=== PATIENT | male | born 1940 | race Caucasian/White ===

== ENCOUNTER → 2017-06-20 | Outpatient (CLI) | payer MEDICARE, BC ==
[~2017-06-20] MED LIST: ACETAMINOPHEN650 M5 PO; AMBIEN 5 MG TABL5 M1 PO; AMLODIPINE BESY10 MG PO; AVODART0.5 MG PO; CARVEDILOL12.5 MG PO; CARVEDILOL25 MG PO; CATAPRES-TTS 10.1 MG PO; CLOPIDOGREL75 MG PO; COUMADIN7.5 MG; ENDOCET 5-3251 EACH; FINASTERIDE5 MG; HUMALOG PE100 UNIT/1 SQ; HYDROCHLOROTHIA25 M1 PO; HYDROCODONE-AP1 EAC6; LEVEMIR SQ; LEXAPRO 10 MG T10 M2 PO; LIDODERM 5%1 PATCH; LISINOPRIL10 MG PO; MEDROLDOSEPACK PO; NOHOMEMEDICATIONS; NORVASC 5 MG TAB5 MG PO; PLAVIX 75 MG TA75 M1 PO; PLAVIX 75 MG TA75 MG; SIMVASTATIN20 MG PO; TAMSULOSIN HCL0.4 M1 PO; TAMSULOSIN HCL0.4 MG; ZOCOR 20 MG TAB20 M1; ZOLOFT 50 MG TA50 MG PO
== END ==
LOC: M.WC 01:41
DX: E11.622 Type 2 diabetes mellitus with other skin ulcer (principal); L98.411 Non-pressure chronic ulcer of buttock limited to breakdown of skin; L89.313 Pressure ulcer of right buttock, stage 3; L89.323 Pressure ulcer of left buttock, stage 3; R54 Age-related physical debility; I25.10 Atherosclerotic heart disease of native coronary artery without angina pectoris; I10 Essential (primary) hypertension; F33.1 Major depressive disorder, recurrent, moderate; E78.2 Mixed hyperlipidemia; Z86.711 Personal history of pulmonary embolism; M19.90 Unspecified osteoarthritis, unspecified site; F41.9 Anxiety disorder, unspecified; F32.9 Major depressive disorder, single episode, unspecified; Z86.73 Personal history of transient ischemic attack (TIA), and cerebral infarction without residual deficits; Z87.891 Personal history of nicotine dependence

== ENCOUNTER → 2017-06-27 | Outpatient (CLI) | payer MEDICARE, BC | LOC: M.WC 02:22 | DX: E11.622 Type 2 diabetes mellitus with other skin ulcer (principal); L98.411 Non-pressure chronic ulcer of buttock limited to breakdown of skin; L89.323 Pressure ulcer of left buttock, stage 3; L89.313 Pressure ulcer of right buttock, stage 3; E11.65 Type 2 diabetes mellitus with hyperglycemia; I10 Essential (primary) hypertension; I25.10 Atherosclerotic heart disease of native coronary artery without angina pectoris; E78.2 Mixed hyperlipidemia; M19.90 Unspecified osteoarthritis, unspecified site; F33.1 Major depressive disorder, recurrent, moderate; F41.9 Anxiety disorder, unspecified; E66.9 Obesity, unspecified; Z68.35 Body mass index [BMI] 35.0-35.9, adult; Z87.891 Personal history of nicotine dependence; Z85.07 Personal history of malignant neoplasm of pancreas; Z86.711 Personal history of pulmonary embolism; Z86.73 Personal history of transient ischemic attack (TIA), and cerebral infarction without residual deficits; Z98.42 Cataract extraction status, left eye; Z98.41 Cataract extraction status, right eye ==

== ENCOUNTER → 2017-07-04 | Outpatient (CLI) | payer MEDICARE, BC | LOC: M.WC 01:20 | DX: E11.622 Type 2 diabetes mellitus with other skin ulcer (principal); L98.411 Non-pressure chronic ulcer of buttock limited to breakdown of skin; L89.323 Pressure ulcer of left buttock, stage 3; L89.313 Pressure ulcer of right buttock, stage 3; E11.65 Type 2 diabetes mellitus with hyperglycemia; I10 Essential (primary) hypertension; I25.10 Atherosclerotic heart disease of native coronary artery without angina pectoris; E78.2 Mixed hyperlipidemia; M19.90 Unspecified osteoarthritis, unspecified site; F41.9 Anxiety disorder, unspecified; F33.1 Major depressive disorder, recurrent, moderate; Z86.73 Personal history of transient ischemic attack (TIA), and cerebral infarction without residual deficits; Z86.711 Personal history of pulmonary embolism; Z85.07 Personal history of malignant neoplasm of pancreas; Z98.42 Cataract extraction status, left eye; Z98.41 Cataract extraction status, right eye; Z87.891 Personal history of nicotine dependence ==

== ENCOUNTER → 2017-07-11 | Outpatient (CLI) | payer MEDICARE, BC | LOC: M.WC 01:37 | DX: E11.622 Type 2 diabetes mellitus with other skin ulcer (principal); L98.411 Non-pressure chronic ulcer of buttock limited to breakdown of skin; L89.312 Pressure ulcer of right buttock, stage 2; L89.322 Pressure ulcer of left buttock, stage 2; R54 Age-related physical debility; I25.10 Atherosclerotic heart disease of native coronary artery without angina pectoris; I10 Essential (primary) hypertension; E78.2 Mixed hyperlipidemia; F33.1 Major depressive disorder, recurrent, moderate; E66.9 Obesity, unspecified; Z68.35 Body mass index [BMI] 35.0-35.9, adult; M19.90 Unspecified osteoarthritis, unspecified site; F32.9 Major depressive disorder, single episode, unspecified; F41.9 Anxiety disorder, unspecified; Z86.711 Personal history of pulmonary embolism; Z86.73 Personal history of transient ischemic attack (TIA), and cerebral infarction without residual deficits; Z85.07 Personal history of malignant neoplasm of pancreas; Z87.891 Personal history of nicotine dependence ==

== ENCOUNTER 2018-08-19 16:28 | Inpatient (IN) | payer MEDICARE, BC ==
[~2018-08-19] VITALS: Ht 190.5 cm; Wt 129.0 kg
[~2018-08-19 16:28] MED LIST changes: -AMLODIPINE BESY10 MG PO; +COREG6.25 MG PO; -LISINOPRIL10 MG PO; -PLAVIX 75 MG TA75 M1 PO; -TAMSULOSIN HCL0.4 MG; +TAMSULOSIN HCL0.4 MG PO
[2018-08-19] MEDS ORDERED: PROAIR RESPICL90 MCG INH (17:01)
[2018-08-19] MEDS ORDERED: LEXAPRO20 MG PO (17:02)
[2018-08-19] MEDS ORDERED: HYDROCHLOROTHIA25 M2 PO (17:02)
[2018-08-19] MEDS ORDERED: FLOMAX0.4 MG PO (17:51)
[2018-08-19] MEDS ORDERED: XARELTO20 MG PO (17:51)
[2018-08-19] MEDS ORDERED: TRIAMCINOLONE 080 G3 TOP (17:57)
[2018-08-19 20:15] VITALS: BP 128/71
[2018-08-20 04:48] LABS: HEMATOCRIT 23.7 % (42.0-52.0); HEMOGLOBIN 8.1 gm/dL (14.0-18.0); MCH 32.7 pg (26.0-34.0); MCHC 34.2 g/dL (28.0-37.0); MCV 95.4 fL (80.0-100.0); MPV 8.3 fl. (7.2-11.1); RBC 2.48 mil/uL (4.50-6.00); RDW-CV 15.5 % (10.5-14.5)
[2018-08-20 05:07] LABS: CALCIUM 8.6 mg/dL (8.5-10.1); CREATININE 1.2 mg/dL (0.6-1.3)
[2018-08-20 08:30] VITALS: BP 110/79
[2018-08-20 20:17] VITALS: BP 127/76
[2018-08-21 08:18] VITALS: BP 117/67
[2018-08-21 20:14] VITALS: BP 124/76
[2018-08-22 07:00] VITALS: BP 126/88
[2018-08-22 20:18] VITALS: BP 119/72
[2018-08-23 08:27] VITALS: BP 122/69
[2018-08-23 17:16] VITALS: BP 156/93
[2018-08-23 20:00] VITALS: BP 118/73
[2018-08-24 03:08] LABS: GLYCOHEMOGLOBIN (HGB A1C) 5.7 % (4.8-5.6)
[2018-08-24 09:01] VITALS: BP 119/79
[2018-08-24 16:58] VITALS: BP 124/86
[2018-08-24 19:54] VITALS: BP 122/76
[2018-08-25 07:55] VITALS: BP 122/86
[2018-08-25 22:23] VITALS: BP 134/77
[2018-08-26 04:29] LABS: CALCIUM 9.2 mg/dL (8.5-10.1); CREATININE 1.2 mg/dL (0.6-1.3); POTASSIUM 3.2 mmol/L (3.5-5.1)
[2018-08-26 05:18] LABS: HEMATOCRIT 42.7 % (42.0-52.0); HEMOGLOBIN 13.7 gm/dL (14.0-18.0); MCH 26.9 pg (26.0-34.0); MCHC 32.1 g/dL (28.0-37.0); MCV 83.8 fL (80.0-100.0); MPV 9.8 fl. (7.2-11.1); NUCLEATED RBCS 0 /100WBC; RBC 5.09 mil/uL (4.50-6.00); RDW-CV 17.5 % (10.5-14.5); WBC 10.3 thou/uL (4.0-11.0)
[2018-08-26 05:22] LABS: PLATELET COUNT* 989 thou/uL (150-400)
[2018-08-26 06:35] LABS: ABSOLUTE BASOPHILS 0.2 thou/uL (0.0-0.2); ABSOLUTE EOSINOPHILS 0.6 thou/uL (0.0-0.7); ABSOLUTE LYMPHOCYTES 4.3 thou/uL (0.8-5.3); ABSOLUTE MONOCYTES 1.3 thou/uL (0.0-1.2); ABSOLUTE NEUTROPHILS 3.8 thou/uL (1.6-8.1); PLATELET ESTIMATE INCREASED; TARGET CELLS 1+
[2018-08-26 06:36] LABS: LARGE PLATELETS FEW
[2018-08-26 06:37] LABS: ANISOCYTOSIS 1+; OVALOCYTES 1+; POIKILOCYTOSIS 2+
[2018-08-26 06:38] LABS: HYPOCHROMASIA 1+
[2018-08-26 08:30] VITALS: BP 130/84
[2018-08-26 20:26] VITALS: BP 121/77
[2018-08-27 03:46] LABS: ABSOLUTE EOSINOPHILS 0.3 thou/uL (0.0-0.7); ABSOLUTE LYMPHOCYTES 2.4 thou/uL (0.8-5.3); ABSOLUTE MONOCYTES 1.3 thou/uL (0.0-1.2); ABSOLUTE NEUTROPHILS 5.5 thou/uL (1.6-8.1); BASOPHILS 0.4 %; EOSINOPHILS 3.1 %; HEMATOCRIT 43.4 % (42.0-52.0); HEMOGLOBIN 13.8 gm/dL (14.0-18.0); LYMPHOCYTES 25.2 %; MCH 26.5 pg (26.0-34.0); MCHC 31.8 g/dL (28.0-37.0); MCV 83.2 fL (80.0-100.0); MONOCYTES 13.7 %; MPV 9.6 fl. (7.2-11.1); NUCLEATED RBCS 0 /100WBC; POLYS 57.6 %; RBC 5.22 mil/uL (4.50-6.00); RDW-CV 17.3 % (10.5-14.5); WBC 9.6 thou/uL (4.0-11.0)
[2018-08-27 04:08] LABS: PLATELET COUNT* 918 thou/uL (150-400)
[2018-08-27 04:12] LABS: ALBUMIN 3.2 g/dL (3.4-5.0); CALCIUM 9.1 mg/dL (8.5-10.1); CREATININE 1.2 mg/dL (0.6-1.3); POTASSIUM 3.6 mmol/L (3.5-5.1); TOTAL BILIRUBIN 0.9 mg/dL (<0.1-1.0); TOTAL PROTEIN 6.3 g/dL (6.4-8.2)
[2018-08-27 08:00] VITALS: BP 132/87
[2018-08-27 20:10] VITALS: BP 127/79
[2018-08-28 08:00] VITALS: BP 120/73
[2018-08-28 08:09] LABS: HEMOGLOBIN 13.9 g/dL (13.0-17.7)
[2018-08-28 20:00] VITALS: BP 124/73
[2018-08-29 09:42] VITALS: BP 108/75
[2018-08-29 20:00] VITALS: BP 126/78
[2018-08-30 05:04] LABS: ABSOLUTE BASOPHILS 0.1 thou/uL (0.0-0.2); ABSOLUTE EOSINOPHILS 0.3 thou/uL (0.0-0.7); ABSOLUTE LYMPHOCYTES 2.6 thou/uL (0.8-5.3); ABSOLUTE MONOCYTES 1.3 thou/uL (0.0-1.2); ABSOLUTE NEUTROPHILS 4.6 thou/uL (1.6-8.1); BASOPHILS 1.5 %; EOSINOPHILS 3.2 %; HEMATOCRIT 41.5 % (42.0-52.0); HEMOGLOBIN 13.4 gm/dL (14.0-18.0); MCHC 32.4 g/dL (28.0-37.0); MCV 83.3 fL (80.0-100.0); MONOCYTES 14.8 %; MPV 9.2 fl. (7.2-11.1); NUCLEATED RBCS 0 /100WBC; PLATELET COUNT* 891 thou/uL (150-400); POLYS 51.5 %; RBC 4.98 mil/uL (4.50-6.00); RDW-CV 17.5 % (10.5-14.5)
[2018-08-30 05:19] LABS: CALCIUM 9.3 mg/dL (8.5-10.1); CREATININE 1.2 mg/dL (0.6-1.3); POTASSIUM 3.4 mmol/L (3.5-5.1)
[2018-08-30 07:32] VITALS: BP 111/84
[2018-08-30] MEDS ORDERED: ADULT LOW DOSE81 MG PO (13:51)
[2018-08-30] MEDS ORDERED: XARELTO20 MG PO (13:51)
[2018-08-30] MEDS ORDERED: K-DUR10 MEQ PO ×2 (13:51→13:53)
[2018-08-30 20:00] VITALS: BP 121/79
[2018-08-31 06:36] VITALS: BP 114/81
[2018-08-31 08:00] VITALS: BP 114/81
[2018-08-31] MEDS ORDERED: AMLODIPINE BESY10 MG PO (10:38)
[2018-08-31] MEDS ORDERED: HYDROCHLOROTHIA25 M1 PO (10:38)
[2018-08-31] MEDS ORDERED: LISINOPRIL10 MG PO (10:39)
[2018-08-31] MEDS ORDERED: PLAVIX 75 MG TA75 M1 PO (10:39)
[2018-08-31] MEDS ORDERED: ATORVASTATIN CA40 MG PO (11:48)
--- NOTE | 2018-08-31 12:22 | PLAN ---
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 He has a previous history of multiple cerebrovascular accidents and a meningioma on the left as well. Previous level of function was modified independent, independent with activities of daily living. Current level of function is minimum to moderate assistance of 1-2 depending on therapy, activity and time of day. Estimated length of stay is 14-16 days with discharge disposition to the home setting with supportive family including his who has been a patient on this unit in the past. MEDICAL PROGNOSIS: Good. REHABILITATION PROGNOSIS: Good. Physical therapy will see the patient 60-90 minutes per day, 5 days per week, working on upper and lower body strength, balance, coordination, navigation. Occupational therapy will work with the patient 60-90 minutes per day, 5 days per week, working on upper and lower body strength, balance, coordination, navigation, bathing, dressing, and toileting. Speech language pathology will work with the patient 30-90 minutes per day, 5 days per week, working on comprehension, expression, social interaction, problem solving and memory. This is an overall plan of care, may change from time to time. We will team weekly and make changes to plan of care as needed. <ELECTRONICALLY SIGNED> By: Erica Garcia DO 08/31/18 1222 1701 [id number] Garcia DO /nt
--- NOTE | 2018-08-31 12:22 | H ---
[place] [address] HISTORY AND PHYSICAL Name: ROMINA MALDONADO Room: [address] IN .R.#: [id number] Admission: 08/19/18 Attend Phys: Erica Garcia DO Discharge: Date of : 36 Report #: [id number] THIS REPORT FOR: //name// CC: FAM unknown Erica Garcia DATE OF SERVICE: 08/19/2018 [facility] CODE: 1.1. HISTORY OF PRESENT ILLNESS: This is a right hand dominant 78-year-old man admitted to inpatient rehabilitation to facilitate safe discharge home, status post right frontoparietal infarct. He presented to the Emergency Department on 08/16/2018 with a left-sided weakness, upper and lower right-sided hemiparesis. He also has a left stable meningioma and chronic left frontal lobe infarct, bilateral occipital lobe infarcts and bilateral cerebellar infarcts, working with Physical and Occupational Therapy, also speech and language pathology needs. No significant changes since the preadmission screening. Previous level of function was modified independent to independent with activities of daily living. Current level of function is minimum to moderate assistance of 1-2 depending on therapy, activity and time of day, ambulating 150 feet with front-wheeled walker, has vadq-lg-wjdypooi impairment of comprehension, expression, social interaction, problem solving and memory. PAST MEDICAL HISTORY: Hypertension, diabetes with random glucose 141, atrial fibrillation, anxiety, hyperlipidemia, PFO, history of PE, history of meningioma, cataracts cerebellar occlusion, history of multiple CVAs, right leg pain, depression, Graves' disease, memory loss, visual impairment, metastatic melanoma, obesity, osteoarthritis, pancreatic cancer and prostate disorder. PAST SURGICAL HISTORY: Bilateral cataracts, splenectomy, pancreatic surgery, tonsillectomy and lower extremity melanoma excision. MEDICATIONS: Reviewed and reconciled by myself and are available in the MAR. ALLERGIES: PENICILLIN. SOCIAL HISTORY: One pack per day. Former smoker, has quit over 5 years ago. No alcohol or illicit drug use. FAMILY HISTORY: Cancer and diabetes. REVIEW OF SYSTEMS: A 14-point review of systems is done today, is negative except as mentioned in HPI, specifically no fever, chest pain, shortness of breath, abdominal pain or distention, change in [place] [address] HISTORY AND PHYSICAL Name: ROMINA MALDONADO Room: [address]#: [id number] Admission: 08/19/18 Attend Phys: Erica Garcia, Discharge: Date of : 36 Report #: [id number] PHYSICAL EXAMINATION: GENERAL: Alert, oriented, no apparent distress. VITAL SIGNS: Reviewed and are stable. HEENT: Head atraumatic, normocephalic. Pupils equal, round, reactive. ABDOMEN: Soft, nontender, nondistended. NEUROLOGIC: Cranial nerves 2-12 are grossly intact. No focal neuro deficits, 5/5 strength in bilateral upper and lower extremities. SKIN: Warm and dry. No rashes or lesions noted. Some hemiparesis is noted in the left upper and lower extremities. Some delayed processing and word finding. ASSESSMENT: 1. Right frontal and right parietal cerebrovascular accident. 2. Multiple previous cerebrovascular accidents. 3. History of meningioma. 4. Multiple medical comorbidities requiring acute daily medical supervision including hypertension, diabetes, atrial fibrillation, anxiety, and history of pulmonary embolism. PLAN: 1. Admission to inpatient rehabilitation. 2. PT, OT, speech, language, case management, nursing and HIMS to make evaluations and recommendations. 3. Plan of care is pending, and we will team him weekly. 4. Discharge planning. <ELECTRONICALLY SIGNED> By: Erica Garcia DO 08/31/18 1222 1659 1720Erica Garcia DO /nt
[2018-08-31 13:28] VITALS: BP 114/81
== END 2018-08-31 15:29 | disposition home or self-care (01) | DRG 65 ==
LOC: M.REH 16:28
PROVIDERS: Family Medicine; Internal Medicine; ADMIT Physical Medicine & Rehabilitation
DX: I63.9 Cerebral infarction, unspecified (principal); Q21.1 Atrial septal defect; J96.11 Chronic respiratory failure with hypoxia; D68.59 Other primary thrombophilia; I69.354 Hemiplegia and hemiparesis following cerebral infarction affecting left non-dominant side; I10 Essential (primary) hypertension; D64.9 Anemia, unspecified; E11.9 Type 2 diabetes mellitus without complications; I48.91 Unspecified atrial fibrillation; F41.9 Anxiety disorder, unspecified; E78.5 Hyperlipidemia, unspecified; F32.9 Major depressive disorder, single episode, unspecified; E05.00 Thyrotoxicosis with diffuse goiter without thyrotoxic crisis or storm; E66.9 Obesity, unspecified; G89.4 Chronic pain syndrome; E87.6 Hypokalemia; D47.3 Essential (hemorrhagic) thrombocythemia; M19.90 Unspecified osteoarthritis, unspecified site; Z86.711 Personal history of pulmonary embolism; Z85.07 Personal history of malignant neoplasm of pancreas; Z88.0 Allergy status to penicillin; Z98.42 Cataract extraction status, left eye; Z98.41 Cataract extraction status, right eye; Z87.891 Personal history of nicotine dependence; Z83.3 Family history of diabetes mellitus; Z90.81 Acquired absence of spleen; Z80.8 Family history of malignant neoplasm of other organs or systems; Z79.899 Other long term (current) drug therapy; Z68.35 Body mass index [BMI] 35.0-35.9, adult

== ENCOUNTER 2018-11-24 12:05 | Emergency (ER) | payer MEDICARE, BC ==
[~2018-11-24] VITALS: Ht 193 cm; Wt 127.0 kg
[~2018-11-24 12:05] MED LIST changes: +ADULT LOW DOSE81 MG PO; +AMLODIPINE BESY10 MG PO; +ATORVASTATIN CA40 MG PO; +FLOMAX0.4 MG PO; +HYDROCHLOROTHIA25 M2 PO; +K-DUR10 MEQ PO; +LEXAPRO20 MG PO; +LISINOPRIL10 MG PO; +PLAVIX 75 MG TA75 M1 PO; +PROAIR RESPICL90 MCG INH; +TRIAMCINOLONE 080 G3 TOP; +XARELTO20 MG PO
[2018-11-24] MEDS ORDERED: LASIX 20 MG TAB20 MG PO (12:15)
[2018-11-24] MEDS ORDERED: HYDREA 500 MG500 M1 PO (12:16)
[2018-11-24] MEDS ORDERED: SIMVASTATIN20 MG PO (12:17)
[2018-11-24] MEDS ORDERED: LEVEMIR SUBQ (12:17)
[2018-11-24] MEDS ORDERED: VISTARIL 25 MG25 M1 PO (12:49)
[2018-11-24] MEDS ORDERED: TRIDERM454 GM TOP (12:51)
[2018-11-24 12:53] VITALS: BP 106/67
== END 2018-11-24 12:54 | disposition home or self-care (01) ==
LOC: M.ERS 12:05
DX: L29.9 Pruritus, unspecified (principal); T45.515A Adverse effect of anticoagulants, initial encounter; T45.1X5A Adverse effect of antineoplastic and immunosuppressive drugs, initial encounter; Y92.89 Other specified places as the place of occurrence of the external cause

== ENCOUNTER 2019-03-10 19:57 | Emergency (ER) | payer MEDICARE, BC ==
[~2019-03-10] VITALS: Ht 195.6 cm; Wt 117.9 kg
[~2019-03-10 19:57] MED LIST changes: +HYDREA 500 MG500 M1 PO; +LASIX 20 MG TAB20 MG PO; +LEVEMIR SUBQ; +TRIDERM454 GM TOP; +VISTARIL 25 MG25 M1 PO
[2019-03-10] MEDS ORDERED: TRIAMCINOLONE A80 GM TOP (20:10)
[2019-03-10] MEDS ORDERED: NYSTATIN15 G1 TOP (21:07)
[2019-03-10] MEDS ORDERED: ACYCLOVIR 400400 MG PO (21:11)
[2019-03-10 21:38] VITALS: BP 113/77
== END 2019-03-10 21:39 | disposition home or self-care (01) ==
LOC: M.ERS 19:57
DX: R21 Rash and other nonspecific skin eruption (principal); F41.9 Anxiety disorder, unspecified; I48.91 Unspecified atrial fibrillation; F32.9 Major depressive disorder, single episode, unspecified; E11.9 Type 2 diabetes mellitus without complications; I10 Essential (primary) hypertension; E78.5 Hyperlipidemia, unspecified; M19.90 Unspecified osteoarthritis, unspecified site; E66.9 Obesity, unspecified; Z68.30 Body mass index [BMI] 30.0-30.9, adult; Z85.820 Personal history of malignant melanoma of skin; Z85.07 Personal history of malignant neoplasm of pancreas; Z85.841 Personal history of malignant neoplasm of brain; Z86.73 Personal history of transient ischemic attack (TIA), and cerebral infarction without residual deficits; Z86.711 Personal history of pulmonary embolism; Z90.81 Acquired absence of spleen; Z90.49 Acquired absence of other specified parts of digestive tract; Z88.0 Allergy status to penicillin

== ENCOUNTER 2019-05-19 15:25 | Emergency (ER) | payer MEDICARE, BC ==
[~2019-05-19] VITALS: Ht 195.6 cm; Wt 122.5 kg
[~2019-05-19 15:25] MED LIST changes: +ACYCLOVIR 400400 MG PO; +NYSTATIN15 G1 TOP; +TRIAMCINOLONE A80 GM TOP
[2019-05-19] MEDS ORDERED: LIDOCAINE VISC100 ML TOP (16:34)
[2019-05-19 16:40] VITALS: BP 121/77
== END 2019-05-19 17:10 | disposition home or self-care (01) ==
LOC: M.ERS 15:25
DX: R21 Rash and other nonspecific skin eruption (principal); E11.9 Type 2 diabetes mellitus without complications; F41.9 Anxiety disorder, unspecified; I48.91 Unspecified atrial fibrillation; E78.5 Hyperlipidemia, unspecified; I10 Essential (primary) hypertension; G89.29 Other chronic pain; M79.604 Pain in right leg; F32.9 Major depressive disorder, single episode, unspecified; M19.90 Unspecified osteoarthritis, unspecified site; Z86.011 Personal history of benign neoplasm of the brain; Z85.46 Personal history of malignant neoplasm of prostate; Z86.73 Personal history of transient ischemic attack (TIA), and cerebral infarction without residual deficits; Z90.89 Acquired absence of other organs; Z88.0 Allergy status to penicillin

== ENCOUNTER 2019-08-30 08:40 | Emergency (ER) | payer MEDICARE, BC ==
[~2019-08-30] VITALS: Ht 193 cm; Wt 125.6 kg
[~2019-08-30 08:40] MED LIST changes: +LIDOCAINE VISC100 ML TOP; +ZOCOR 20 MG TAB20 M1 PO
[2019-08-30 08:41] VITALS: BP 127/80
[2019-08-30] MEDS ORDERED: XARELTO20 MG PO (08:47)
[2019-08-30] MEDS ORDERED: PLAVIX 75 MG TA75 MG PO (08:52)
[2019-08-30] MEDS ORDERED: LISINOPRIL2.5 MG PO (08:54)
[2019-08-30] MEDS ORDERED: HUMALOG100 UNIT/1 SUBQ (08:54)
--- NOTE | 2019-08-30 11:05 | NUR ---
ASSUMED PT CARE FROM NAVI MELÉNDEZ R.N.
[2019-08-30 11:06] LABS: ABSOLUTE BASOPHILS 0.1 thou/uL (0.0-0.2); ABSOLUTE LYMPHOCYTES 0.9 thou/uL (0.8-5.3); ABSOLUTE MONOCYTES 0.8 thou/uL (0.0-1.2); ABSOLUTE NEUTROPHILS 9.4 thou/uL (1.6-8.1); BASOPHILS 0.6 %; EOSINOPHILS 0.2 %; HEMOGLOBIN 14.5 gm/dL (14.0-18.0); MCH 35.5 pg (26.0-34.0); MCHC 33.7 g/dL (28.0-37.0); MCV 105.2 fL (80.0-100.0); MONOCYTES 7.4 %; MPV 8.9 fl. (7.2-11.1); NUCLEATED RBCS 0 /100WBC; PLATELET COUNT* 239 thou/uL (150-400); POLYS 83.8 %; RBC 4.08 mil/uL (4.50-6.00); RDW-CV 14.8 % (10.5-14.5); WBC 11.2 thou/uL (4.0-11.0)
[2019-08-30 11:15] LABS: CALCIUM 8.9 mg/dL (8.5-10.1); POTASSIUM 3.7 mmol/L (3.5-5.1)
[2019-08-30 11:46] LABS: ALBUMIN 3.3 g/dL (3.4-5.0); TOTAL BILIRUBIN 1.3 mg/dL (<0.1-1.0); TOTAL PROTEIN 7.1 g/dL (6.4-8.2)
--- NOTE | 2019-08-30 15:59 | 2DMMODE ---
[place] [address] 2 D/M-MODE ECHOCARDIOGRAM Name: JOELROMINA Najma Room: [facility]4 [facility] IN [facility]#: [id number] Admission: 08/30/19 Attend Phys: Db Person Discharge: Date of : 36 Date of Service: 08/30/19 1557 Report #: [id number] THIS REPORT FOR: cc: Heaven Pinedo MD, Elizabeth MD Holkins,Anselmo Mcclellan MD [facility] ~ APPROVED REPORT Study performed: 08/30/2019 13:53:23 EXAM: Comprehensive 2D, Doppler, and color-flow Echocardiogram Patient Location: In-Patient Room #: er Status: routine BSA: 2.54 HR: 97 bpm BP: 127/80 mmHg Other Information Study Quality: Good Indications CVA/TIA Echo Enhancing Agent Indication: Rule out Shunt Agent(s) / Amount(s) Used: Agitated Saline 10 cc 2D Dimensions IVSd: 12.30 (7-11mm) LVOT Diam: 24.29 (18-24mm) LVDd: 54.56 mm PWd: 10.88 (7-11mm) Ascending Ao: 44.06 (22-36mm) LVDs: 38.99 (25-40mm) Aortic Root: 42.38 mm Volumes Left Atrial Volume (Systole) LA ESV Index: 39.40 mL/m2 Aortic Valve AoV Peak Tyrone.: 0.99 m/s AO Peak Gr.: 3.95 mmHg LVOT Max P.70 mmHg AO Mean Gr.: 2.45 mmHg LVOT Mean P.81 mmHg LVOT Max V: 0.65 m/[place] [address] 2 D/M-MODE ECHOCARDIOGRAM Name: ROMINA MALDONADO Room: [address] IN ..#: [id number] Admission: 08/30/19 Attend Phys: Db Person Discharge: Date of : 36 Date of Service: 08/30/19 1557 Report #: [id number] V2 VTI: 17.07 cm LVOT Mean V: 0.41 m/s ELIZABETH (VTI): 2.99 cm2 LVOT V1 VTI: 11.00 cm Pulmonary Valve PV Peak Tyrone.: 0.75 m/s PV Peak Gr.: 2.22 mmHg Tricuspid Valve RAP Estimate: 5.00 mmHg TR Peak Gr.: 30.94 mmHg RVSP: 35.00 mmHg PA Pressure: 35.00 mmHg Left Ventricle The left ventricle is normal size. There is normal LV segmental wall motion. There is normal left ventricular wall thickness. Left ventricular systolic function is normal. The left ventricular ejection fraction is within the normal range. LVEF is 60-65%. This study is not technically sufficient to allow evaluation of the LV diastolic function due to atrial fibrillation. Right Ventricle The right ventricle is normal size. The right ventricular systolic function is normal. Atria Left atrium is mildly dilated. The interatrial septum is intact with no evidence for an atrial septal defect. The right atrium size is normal. Aortic Valve The aortic valve is normal in structure. No aortic regurgitation is present. There is no aortic valvular stenosis. Mitral Valve The mitral valve is normal in structure. There is no mitral valve regurgitation noted. No evidence of mitral valve stenosis. Tricuspid Valve The tricuspid valve is normal in structure. Mild tricuspid regurgitation. Mild pulmonary hypertension. Pulmonic Valve The pulmonary valve is normal in structure. There is no pulmonic valvular regurgitation. Great Vessels The aortic root is normal in size. [place] [address] 2 D/M-MODE ECHOCARDIOGRAM Name: ROMINA MALDONADO Room: [address] IN [facility]#: [id number] Admission: 08/30/19 Attend Phys: Db Person Discharge: Date of : 36 Date of Service: 08/30/19 1557 Report #: [id number] visualized. Pericardium There is no pericardial effusion. <Conclusion> The left ventricle is normal size. There is normal left ventricular wall thickness. Left ventricular systolic function is normal. The left ventricular ejection fraction is within the normal range. LVEF is 60-65%. This study is not technically sufficient to allow evaluation of the LV diastolic function due to atrial fibrillation. The right ventricle is normal size. Left atrium is mildly dilated. The right atrium size is normal. The aortic valve is normal in structure. The mitral valve is normal in structure. The tricuspid valve is normal in structure. Mild tricuspid regurgitation. Mild pulmonary hypertension. There is no pericardial effusion. There is normal LV segmental wall motion. The interatrial septum is intact with no evidence for an atrial septal defect. <ELECTRONICALLY SIGNED> By: Anselmo Dubose MD, FACC 08/30/19 1557 1557 1557 Anselmo Dubose MD, FACC /INF
--- NOTE | 2019-08-30 16:31 | EKG ---
[place] [address] ELECTROCARDIOGRAM REPORT Name: ROMINA MALDONADO Room: [facility]#: [id number] Admission: 08/30/19 Attend Phys: Discharge: Date of : 36 Date of Service: 08/30/19 1057 Report #: [id number] THIS REPORT FOR: //name// [facility] ED Test Date: 2019-08-30 Test Time: 10:57:15 Pat Name: ROMIAN JOEL Department: Room: [facility] Gender: M [employer]: : 1940 Requested By: Dorian Martinez Order Number: [id number] MD: Mandeep Kuhn Measurements Intervals Thompson Rate: 107 P: PA: QRS: -85 QRSD: 98 T: 33 QT: 535 QTc: 714 Interpretive Statements Atrial fibrillation Paired ventricular premature complexes Inferior infarct, old Abnormal lateral Q waves Anterolateral infarct, old Prolonged QT interval Baseline wander in lead(s) V3 ow voltage throughout No previous ECG available for comparison Electronically Signed On 08-30-2019 16:30:38 CDT by Mandeep Kuhn [email or web address] <ELECTRONICALLY SIGNED> By: Mandeep Kuhn MD, FAC 08/30/19 1630 1057 1057 Mandeep Kuhn MD, [facility] /EPI
[2019-08-30 18:05] VITALS: BP 151/95
== END 2019-08-30 18:05 | disposition short-term general hospital (02) ==
LOC: M.ERS 08:40 → M.TBA-ER 12:14 → M.ERS 12:14
PROVIDERS: Emergency Medicine Emergency Medical Services
DX: S72.011A Unspecified intracapsular fracture of right femur, initial encounter for closed fracture (principal); G93.9 Disorder of brain, unspecified; M25.561 Pain in right knee; M25.571 Pain in right ankle and joints of right foot; I10 Essential (primary) hypertension; I48.91 Unspecified atrial fibrillation; E11.9 Type 2 diabetes mellitus without complications; E78.5 Hyperlipidemia, unspecified; E66.9 Obesity, unspecified; M19.90 Unspecified osteoarthritis, unspecified site; F41.9 Anxiety disorder, unspecified; F32.9 Major depressive disorder, single episode, unspecified; Z68.33 Body mass index [BMI] 33.0-33.9, adult; Z85.07 Personal history of malignant neoplasm of pancreas; Z86.711 Personal history of pulmonary embolism; Z86.73 Personal history of transient ischemic attack (TIA), and cerebral infarction without residual deficits; Z90.49 Acquired absence of other specified parts of digestive tract; Z88.0 Allergy status to penicillin; W01.0XXA Fall on same level from slipping, tripping and stumbling without subsequent striking against object, initial encounter; Y93.89 Activity, other specified; Y92.89 Other specified places as the place of occurrence of the external cause; Y99.8 Other external cause status